=== PATIENT | female | born 1950 | race Caucasian/White ===

== ENCOUNTER 2016-12-14 18:51 | Emergency (ER) | payer MEDICARE, BC ==
[~2016-12-14] VITALS: Ht 167.6 cm; Wt 82.0 kg
[2016-12-14] MEDS ORDERED: ONDANSETRON ODT 8 MG ONE (19:16)
[2016-12-14] MEDS ORDERED: ONDANSETRON ODT 8 MG PO ONE (19:30)
[2016-12-14] MEDS ORDERED: PLEASE ENTER HEIGHT AND WEIGHT MC SCH (19:30)
[2016-12-14] MEDS ORDERED: PLEASE ENTER ALLERGIES MC SCH ×2 (19:30)
[2016-12-14] MEDS ORDERED: ASPI-650 PO (19:31)
[2016-12-14 19:34] LABS: HEMATOCRIT 32.7 % (34.6-47.8); HEMOGLOBIN 10.3 g/dL (11.7-16.4); WHITE BLOOD COUNT 6.4 x10^3/uL (3.4-10)
[2016-12-14 19:42] LABS: ASPARTATE AMINO TRANSFERASE 13 U/L (15-37); BLOOD UREA NITROGEN 20 mg/dL (7-18)
[2016-12-14 19:50] LABS: DIFF TOTAL CELLS COUNTED 100 CELL DIFF
[2016-12-14 19:51] LABS: VERIFY COUNTS? YES
[2016-12-14 19:52] LABS: ANISOCYTOSIS 1+; POLYCHROMASIA 1+
[2016-12-14 19:53] LABS: HYPOCHROMIA 1+; OVALOCYTES 1+
[2016-12-14 20:41] VITALS: BP 139/75
== END 2016-12-14 20:45 | disposition home or self-care (01) ==
LOC: ED 20:15
DX: R11.10 Vomiting, unspecified (principal); M54.2 Cervicalgia; R42 Dizziness and giddiness
CPT/HCPCS: 36415; 72050; 74022; 80053; 83690; 85025; 93005; 99285; Q0162